=== PATIENT | male | born 1990 | race Caucasian/White ===

== ENCOUNTER 2018-06-18 21:09 | Emergency (ER) | payer OTHER ==
[2018-06-18 21:25] VITALS: BP 120/68; PULSE 86
--- NOTE | 2018-06-18 21:43 | ERPHSYRPT ---
- History of Present Illness Time Seen by Provider: 06/18/18 21:42 Source: patient Exam Limitations: no limitations Patient Subjective Stated Complaint: pt states he rolled his right ankle around noon today Triage Nursing Assessment: pt a&o x3; skin p, w, & d; assisted to room per self on crutches and family; family at bedside. Physician History: 28 y/o white male "rolled" his ankle today approx 10 am. at noon, his pain was worse and noticed swelling. pt took a nap and when he awoke pain and swelling worse. pt arrives using crutches. Method of Injury: twisted Occurred: this morning Quality: aching, throbbing Severity of Pain-Max: moderate Severity of Pain-Current: mild (to mod when ambulating) Lower Extremities Pain: ankle: right Modifying Factors: Improves With: movement Associated Symptoms: other (hurts to bear weight) Allergies/Adverse Reactions: No Known Drug Allergies Allergy (Verified 06/18/18 21:24) Hx Tetanus, Diphtheria Vaccination/Date Given: No Hx Influenza Vaccination/Date Given: No Hx Pneumococcal Vaccination/Date Given: No Immunizations Up to Date: No - Review of Systems Constitutional: No Symptoms Eyes: No Symptoms Ears, Nose, & Throat: No Symptoms Respiratory: No Symptoms Cardiac: No Symptoms Abdominal/Gastrointestinal: No Symptoms Genitourinary Symptoms: No Symptoms Musculoskeletal: Injury, Joint Swelling Skin: No Symptoms Neurological: Gait Changes (limping when ambulating. using crutches ), No Dizziness Psychological: No Symptoms Endocrine: No Symptoms, No Polyuria, No Polydipsia Hematologic/Lymphatic: No Symptoms Immunological/Allergic: No Symptoms All Other Systems: Reviewed and Negative - Past Medical History Pertinent Past Medical History: Yes Neurological History: No Pertinent History ENT History: No Pertinent History Cardiac History: No Pertinent History Respiratory History: No Pertinent History Endocrine Medical History: No Pertinent History Musculoskeletal History: Fractures GI Medical History: GI Bleed History: No Pertinent History Psycho-Social History: Bipolar, Depression, Other Male Reproductive Disorders: No Pertinent History Other Medical History: ADHD, OCD. Clavicle, ankle, foot, and hand fractures. - Past Surgical History Past Surgical History: Yes Neuro Surgical History: No Pertinent History Cardiac: No Pertinent History Respiratory: No Pertinent History Gastrointestinal: No Pertinent History Genitourinary: No Pertinent History Musculoskeletal: No Pertinent History Male Surgical History: No Pertinent History Other Surgical History: tonsillectomy - Social History Smoking Status: Current every day smoker How long have you smoked: 9 Exposure to second hand smoke: No Drug Use: none Patient Lives Alone: No - Nursing Vital Signs Nursing Vital Signs: Initial Vital Signs Temperature 97.6 F 06/18/18 21:19 Pulse Rate 86 06/18/18 21:19 Respiratory Rate 18 06/18/18 21:19 Blood Pressure 120/68 06/18/18 21:19 O2 Sat by Pulse Oximetry 96 06/18/18 21:19 Pain Scale Pain Intensity 8 - Physical Exam General Appearance: no apparent distress, alert, anxiety Eyes, Ears, Nose, Throat Exam: normal ENT inspection Neck Exam: normal inspection, non-tender, supple, full range of motion Cardiovascular/Respiratory Exam: chest non-tender Gastrointestinal/Abdominal Exam: non-tender Back Exam: normal inspection, normal range of motion, No CVA tenderness, No vertebral tenderness Hips Exam: bilateral: non-tender, normal inspection, normal range of motion, no evidence of injury Legs Exam: bilateral leg: non-tender, normal inspection, normal range of motion , no evidence of injury Knees Exam: bilateral knee: non-tender, normal inspection, normal range of motion, no evidence of injury Ankle Exam: right ankle: limited range of motion, soft tissue tenderness ( lateral malleolar area), swelling, left ankle: non-tender, normal inspection, normal range of motion, no evidence of injury Foot Exam: bilateral foot: non-tender, normal inspection, normal range of motion , no evidence of injury Neuro/Tendon Exam: normal sensation, normal motor functions, normal tendon functions Mental Status Exam: alert, oriented x 3, cooperative Skin Exam: normal color, warm, dry SpO2 Interpretation: normal SpO2: 96 Oxygen Delivery: Room Air - Course Nursing assessment & vital signs reviewed: Yes Ordered Tests: Active Orders 24 hr Category Date Time Status ANKLE (3 VIEWS) Stat Exams 06/18/18 20:06 Completed Lab/Rad Data: xray right ankle-no acute fx or dislocation. anterolateral soft tissue swelling - Progress Counseled pt/family regarding: diagnosis, need for follow-up, rad results - Departure Time of Disposition: 22:37 Departure Disposition: Home Clinical Impression: Right ankle sprain Condition: Stable Critical Care Time: No Referrals: DIPTI MILAN [Primary Care Provider] - Additional Instructions: ice pack 3 times daily for 2 days. wear leana wrap and use crutches for comfort. elevate right leg above level of heart if not ambulating. weight bearing as tolerated. tylenol and ibuprofen for pain.
--- NOTE | 2018-06-18 22:27 | XRAY ---
Indication: Pain following sprain injury. Comparison: None 3 views of the right ankle demonstrates anterior lateral soft tissue swelling. No other bony, articular, or soft tissue abnormalities.
[2018-06-18] MEDS ORDERED: NORCO 5/325 MG PO ONE (22:39)
[2018-06-18] MEDS ORDERED: NORCO 5/325 MG ONE (22:44)
[2018-06-18 22:48] VITALS: O2SAT 98
== END 2018-06-18 22:48 | disposition home or self-care (01) ==
LOC: ED 21:09
DX: S93.401A Sprain of unspecified ligament of right ankle, initial encounter (principal); X50.1XXA Overexertion from prolonged static or awkward postures, initial encounter
CPT/HCPCS: 73610; 99283; A9270-GY

== ENCOUNTER 2019-03-20 12:17 | Emergency (ER) | payer MEDICARE ==
[2019-03-20] MEDS ORDERED: Rocephin 1000 MG INJ IM ONE (13:30)
[2019-03-20 13:31] VITALS: BP 118/80; PULSE 87; O2SAT 100
[2019-03-20] MEDS ORDERED: solu-CORTEF 250MG IM STA (13:31)
[2019-03-20] MEDS ORDERED: solu-CORTEF 250MG ONE (13:35)
[2019-03-20] MEDS ORDERED: Rocephin 1000 MG INJ ONE (13:35)
--- NOTE | 2019-03-20 13:44 | ERPHSYRPT ---
- History of Present Illness Time Seen by Provider: 03/20/19 13:41 Source: patient Exam Limitations: no limitations Patient Subjective Stated Complaint: chest congestion x 1 week. seen at [facility] and was given a steroid shot. states he has a cough since then. Triage Nursing Assessment: chest congestion with cough x 1 week. non productive cough. staes had ear pain but that is better . lungs congested on auscultation. Physician History: chest congestion x 1 week. seen at [facility] and was given a steroid shot. states he has a cough since then. Timing/Duration: week(s) (one week) Severity: mild Associated Symptoms: cough Allergies/Adverse Reactions: No Known Drug Allergies Allergy (Verified 06/18/18 21:24) Hx Tetanus, Diphtheria Vaccination/Date Given: No Hx Influenza Vaccination/Date Given: No Hx Pneumococcal Vaccination/Date Given: No Immunizations Up to Date: Yes - Review of Systems Constitutional: No Fever, No Chills Eyes: No Symptoms Ears, Nose, & Throat: No Symptoms Respiratory: Cough, No Dyspnea, No Wheezing Cardiac: No Chest Pain, No Edema, No Syncope Abdominal/Gastrointestinal: No Abdominal Pain, No Nausea, No Vomiting, No Diarrhea Genitourinary Symptoms: No Dysuria Musculoskeletal: No Back Pain, No Neck Pain Skin: No Rash Neurological: No Dizziness, No Focal Weakness, No Sensory Changes Psychological: No Symptoms Endocrine: No Symptoms All Other Systems: Reviewed and Negative - Past Medical History Pertinent Past Medical History: Yes Neurological History: No Pertinent History ENT History: No Pertinent History Cardiac History: No Pertinent History Respiratory History: No Pertinent History Endocrine Medical History: No Pertinent History Musculoskeletal History: Fractures GI Medical History: GI Bleed History: No Pertinent History Psycho-Social History: Bipolar, Depression, Other Male Reproductive Disorders: No Pertinent History Other Medical History: ADHD, OCD. Clavicle, ankle, foot, and hand fractures. - Past Surgical History Past Surgical History: Yes Neuro Surgical History: No Pertinent History Cardiac: No Pertinent History Respiratory: No Pertinent History Gastrointestinal: No Pertinent History Genitourinary: No Pertinent History Musculoskeletal: No Pertinent History Male Surgical History: No Pertinent History Other Surgical History: tonsillectomy - Social History Smoking Status: Current every day smoker How long have you smoked: 9 Exposure to second hand smoke: No Drug Use: marijuana Patient Lives Alone: No - Nursing Vital Signs Nursing Vital Signs: Initial Vital Signs Temperature 98.6 F 03/20/19 13:07 Pulse Rate 87 03/20/19 13:07 Respiratory Rate 18 03/20/19 13:07 Blood Pressure 118/80 03/20/19 13:07 O2 Sat by Pulse Oximetry 100 03/20/19 13:07 Pain Scale Pain Intensity 0 - Physical Exam General Appearance: no apparent distress, alert Eye Exam: PERRL/EOMI, eyes nml inspection Ears, Nose, Throat Exam: normal ENT inspection, TMs normal, pharynx normal, moist mucous membranes Neck Exam: normal inspection, non-tender, supple, full range of motion Respiratory Exam: diminished breath sounds, rhonchi, wheezing, No respiratory distress Cardiovascular Exam: regular rate/rhythm, normal heart sounds, normal peripheral pulses Gastrointestinal/Abdomen Exam: soft, normal bowel sounds, No tenderness, No mass Back Exam: normal inspection, normal range of motion, No CVA tenderness, No vertebral tenderness Extremity Exam: normal inspection, normal range of motion, pelvis stable Neurologic Exam: alert, oriented x 3, cooperative, normal mood/affect, nml cerebellar function, nml station & gait, sensation nml, No motor deficits Skin Exam: normal color, warm, dry, No rash Lymphatic Exam: No adenopathy SpO2: 100 - Course Nursing assessment & vital signs reviewed: Yes Ordered Tests: Medication Summary Discontinued Medications Generic Name Dose Route Start Last Admin Trade Name Sulaiman PRN Reason Stop Dose Admin Ceftriaxone Sodium 1,000 mg 03/20/19 13:30 03/20/19 13:40 Rocephin 1000 Mg Inj IM 03/20/19 13:31 1,000 mg STAT ONE Administration Ceftriaxone Sodium Confirm 03/20/19 13:35 Rocephin 1000 Mg Inj Administered 03/20/19 13:36 Dose 1,000 mg .ROUTE .STK-MED ONE Hydrocortisone Sodium Succinate 250 mg 03/20/19 13:31 03/20/19 13:39 Solu-Cortef 250mg IM 03/20/19 13:32 250 mg Q6H STA Administration Hydrocortisone Sodium Succinate Confirm 03/20/19 13:35 Solu-Cortef 250mg Administered 03/20/19 13:36 Dose 250 mg .ROUTE .STK-MED ONE - Progress Counseled pt/family regarding: diagnosis, need for follow-up, smoking cessation - Departure Departure Disposition: Home Clinical Impression: Bronchitis, Smoking Condition: Stable Critical Care Time: No Referrals: TERRENCE PARKER [ACTIVE STAFF] - Instructions: Acute Bronchitis, Adult (DC), Risk Factors for COPD Prescriptions: Amoxicillin 500 mg PO TID #30 tablet Methylprednisolone Packet [Medrol Dosepack] 4 mg PO UD #30 packet
== END 2019-03-20 14:06 | disposition home or self-care (01) ==
LOC: ED 12:17
DX: J40 Bronchitis, not specified as acute or chronic (principal); F17.200 Nicotine dependence, unspecified, uncomplicated; R09.89 Other specified symptoms and signs involving the circulatory and respiratory systems
CPT/HCPCS: 96372; 99283; J0696; J1720

== ENCOUNTER 2022-08-11 15:29 | Emergency (ER) | payer MEDICARE ==
--- NOTE | 2022-08-11 15:34 | ERPHSYRPT ---
- History of Present Illness Time Seen by Provider: 08/11/22 15:34 Source: patient Exam Limitations: no limitations Physician History: This is a 32-year-old white male who presents with left foot pain after getting his left heel caught in lawn more chute. It made a superficial cut in the plantar surface of his left heel. Patient tetanus status is not up-to-date. Method of Injury: other (Lawn more) Occurred: just prior to arrival Severity of Pain-Max: mild Severity of Pain-Current: mild Lower Extremities Pain: foot: left (Plantar aspect of left heel) Modifying Factors: Improves With: nothing Associated Symptoms: none Allergies/Adverse Reactions: No Known Drug Allergies Allergy (Verified 08/11/22 15:39) Home Medications: Benztropine Mesylate 1 tab PO HS 08/11/22 [History] Omeprazole 1 tab PO DAILY 08/11/22 [History] risperiDONE [Risperidone] 1 tab PO BID 08/11/22 [History] Hx Tetanus, Diphtheria Vaccination/Date Given: No Hx Influenza Vaccination/Date Given: No Hx Pneumococcal Vaccination/Date Given: No Travel Risk - International Travel Have you traveled outside of the country in past 3 weeks: No - Coronavirus Screening Are you exhibiting any of the following symptoms?: No Close contact with a COVID-19 positive Pt in past 14-21 Days: No - Review of Systems Constitutional: No Symptoms Eyes: No Symptoms Ears, Nose, & Throat: No Symptoms Respiratory: No Symptoms Cardiac: No Symptoms Abdominal/Gastrointestinal: No Symptoms Genitourinary Symptoms: No Symptoms Musculoskeletal: No Symptoms Skin: Other (Superficial laceration left heel) Neurological: No Symptoms Psychological: No Symptoms Endocrine: No Symptoms Hematologic/Lymphatic: No Symptoms Immunological/Allergic: No Symptoms - Past Medical History Pertinent Past Medical History: Yes Neurological History: No Pertinent History ENT History: No Pertinent History Cardiac History: No Pertinent History Respiratory History: No Pertinent History Endocrine Medical History: No Pertinent History Musculoskeletal History: Fractures GI Medical History: GI Bleed History: No Pertinent History Psycho-Social History: Bipolar, Depression, Other Male Reproductive Disorders: No Pertinent History Other Medical History: ADHD, OCD. Clavicle, ankle, foot, and hand fractures. - Past Surgical History Past Surgical History: Yes Neuro Surgical History: No Pertinent History Cardiac: No Pertinent History Respiratory: No Pertinent History Gastrointestinal: No Pertinent History Genitourinary: No Pertinent History Musculoskeletal: No Pertinent History Male Surgical History: No Pertinent History Other Surgical History: tonsillectomy - Social History Smoking Status: Current every day smoker How long have you smoked: 9 Exposure to second hand smoke: No Drug Use: marijuana Patient Lives Alone: No - Nursing Vital Signs Nursing Vital Signs: Initial Vital Signs Temperature 98 F 08/11/22 15:42 Pulse Rate 84 08/11/22 15:42 Respiratory Rate 18 08/11/22 15:42 Blood Pressure 123/76 08/11/22 15:42 O2 Sat by Pulse Oximetry 94 L 08/11/22 15:42 Pain Scale Pain Intensity 1 - Physical Exam General Appearance: no apparent distress, alert Eyes, Ears, Nose, Throat Exam: normal ENT inspection, moist mucous membranes Neck Exam: normal inspection, non-tender, supple, full range of motion Cardiovascular/Respiratory Exam: chest non-tender, no respiratory distress Gastrointestinal/Abdominal Exam: non-tender Back Exam: normal inspection, normal range of motion, No CVA tenderness Hips Exam: bilateral: non-tender, normal inspection, normal range of motion, no evidence of injury Legs Exam: bilateral leg: non-tender, normal inspection, normal range of motion, no evidence of injury Knees Exam: bilateral knee: non-tender, normal inspection, normal range of motion, no evidence of injury Ankle Exam: bilateral ankle: non-tender, normal inspection, normal range of motion, no evidence of injury Foot Exam: right foot: non-tender, normal inspection, no evidence of injury, left foot: normal range of motion, soft tissue tenderness (Approximately 3.5 superficial laceration not through the full-thickness of the plantar surface of the left heel. No active bleeding. No foreign bodies.), other (No laceration repair necessary) Neuro/Tendon Exam: normal sensation, normal motor functions, normal tendon functions Mental Status Exam: alert, oriented x 3, cooperative Skin Exam: normal color, warm, dry, laceration (Left heel as stated above. No repair necessary) O2 Delivery: Room Air - Course Nursing assessment & vital signs reviewed: Yes Ordered Tests: Medication Summary Discontinued Medications Generic Name Dose Route Start Last Admin Trade Name Freq PRN Reason Stop Dose Admin Diphtheria/Tetanus/Acell Pertussis 0.5 ml 08/11/22 16:18 08/11/22 16:21 Tdap --Diph,Pertuss(Acell),Tet Vac/Pf 0.5 Ml Vial IM 10/24/22 16:19 0.5 ml .ONCE ONE Administration Diphtheria/Tetanus/Acell Pertussis Confirm 08/11/22 16:20 Tdap --Diph,Pertuss(Acell),Tet Vac/Pf 0.5 Ml Vial Administered 08/11/22 16:21 Dose 0.5 ml IM .STK-MED ONE - Progress Progress Note: 08/11/22 16:52 Left heel superficial laceration will heal by secondary intention. No surgical repair necessary. - Departure Departure Disposition: Home Clinical Impression: Laceration of left heel Condition: Stable Critical Care Time: No Referrals: NANETTE NGUYEN NP [Primary Care Provider] - Follow up/PCP as directed Additional Instructions: Keep the site clean daily with soap and water. Do not use lotions ointments or creams to the site. Cover with a nonstick bandage after cleaning and drying the site each day. Take your antibiotics as prescribed. Use Tylenol and ibuprofen for pain control. Prescriptions: Cephalexin Mh 500 mg [Keflex 500 mg] 500 mg PO TID #15 cap
[2022-08-11 15:51] VITALS: BP 123/76; PULSE 84; O2SAT 94
[2022-08-11] MEDS ORDERED: Adacel Vial IM ONE ×2 (16:18→16:20)
== END 2022-08-11 17:02 | disposition home or self-care (01) ==
LOC: ED 15:29
DX: S91.312A Laceration without foreign body, left foot, initial encounter (principal); W31.89XA Contact with other specified machinery, initial encounter; M79.672 Pain in left foot; Z72.0 Tobacco use; Z79.899 Other long term (current) drug therapy
CPT/HCPCS: 90471; 90715; 99282

== ENCOUNTER 2023-02-08 13:27 | Emergency (ER) | payer MEDICARE ==
[2023-02-08] MEDS ORDERED: Fluor-I-Strip/Ful-Flo OP ONE ×2 (14:02→14:21)
[2023-02-08] MEDS ORDERED: TETRACAINE 0.5% STERI-UNIT SOL OP ONE (14:02)
[2023-02-08] MEDS ORDERED: Eye-Stream Solution ONE (14:03)
[2023-02-08 14:04] VITALS: BP 131/85; O2SAT 98
--- NOTE | 2023-02-08 14:15 | ERPHSYRPT ---
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 Patient reports that he attempted to irrigate his eye with water yesterday but denies any foreign body noted after irrigation. Patient reports that his vision is left eye is blurry and that his eye itches. Patient having difficulty opening left eyelid without manually opening open. Clear drainage noted. Physician History: Patient is here for left eye irritation. Patient states that yesterday he was poked in the eye by a stick. States he was out mushroom hunting. Patient state s that he stood up quickly and struck his eye. Patient has had no obvious visual changes. 20/50 in both eyes. 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 not wear glasses. 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 have an trimmer buffing wheel that he follows with Allergies/Adverse Reactions: No Known Drug Allergies Allergy (Verified 02/08/23 13:49) Home Medications: Benztropine Mesylate 1 tab PO HS 08/11/22 [History] Omeprazole 2 tab PO DAILY 08/11/22 [History] risperiDONE [Risperidone] 1 tab PO BID 08/11/22 [History] Buspirone HCl 5 mg [Buspar 5 mg] 5 mg PO BID 02/08/23 [History] Sertraline HCl 50 mg [Zoloft 50 mg Tablet] 100 mg PO DAILY 02/08/23 [History] Hx Tetanus, Diphtheria Vaccination/Date Given: Yes Hx Influenza Vaccination/Date Given: No Hx Pneumococcal Vaccination/Date Given: No Immunizations Up to Date: Yes Travel Risk - International Travel Have you traveled outside of the country in past 3 weeks: No - Coronavirus Screening Are you exhibiting any of the following symptoms?: No Close contact with a COVID-19 positive Pt in past 14-21 Days: No - Vaccine Status Have you recieved a Covid-19 vaccination: Yes 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: [employer] - Vaccination Dates Date of 2cond Vaccination (if applicable): n/a - Review of Systems Constitutional: No Fever, No Chills Eyes: No Symptoms Ears, Nose, & Throat: No Symptoms Respiratory: No Cough, No Dyspnea Cardiac: No Chest Pain, No Edema, No Syncope Abdominal/Gastrointestinal: No Abdominal Pain, No Nausea, No Vomiting, No Diarrhea Genitourinary Symptoms: No Dysuria Musculoskeletal: No Back Pain, No Neck Pain Skin: No Rash Neurological: No Dizziness, No Focal Weakness, No Sensory Changes Psychological: No Symptoms Endocrine: No Symptoms All Other Systems: Reviewed and Negative - Past Medical History Pertinent Past Medical History: Yes Neurological History: No Pertinent History ENT History: No Pertinent History Cardiac History: No Pertinent History Respiratory History: No Pertinent History Endocrine Medical History: No Pertinent History Musculoskeletal History: Fractures GI Medical History: GI Bleed History: No Pertinent History Psycho-Social History: Bipolar, Depression, Other Male Reproductive Disorders: No Pertinent History Other Medical History: ADHD, OCD. Clavicle, ankle, foot, and hand fractures. - Past Surgical History Past Surgical History: Yes Neuro Surgical History: No Pertinent History Cardiac: No Pertinent History Respiratory: No Pertinent History Gastrointestinal: No Pertinent History Genitourinary: No Pertinent History Musculoskeletal: No Pertinent History Male Surgical History: No Pertinent History Other Surgical History: tonsillectomy - Social History Smoking Status: Current every day smoker How long have you smoked: 9 Exposure to second hand smoke: No Drug Use: marijuana Patient Lives Alone: No - Nursing Vital Signs Nursing Vital Signs: Initial Vital Signs Respiratory Rate 18 02/08/23 13:28 Blood Pressure 131/85 02/08/23 13:28 O2 Sat by Pulse Oximetry 98 02/08/23 13:28 Pain Scale Pain Intensity 1 - Physical Exam General Appearance: no apparent distress, alert Eye Exam: PERRL/EOMI, eyes nml inspection Ears, Nose, Throat Exam: normal ENT inspection, TMs normal, pharynx normal, moist mucous membranes Neck Exam: normal inspection, non-tender, supple, full range of motion Respiratory Exam: normal breath sounds, lungs clear, No respiratory distress Cardiovascular Exam: regular rate/rhythm, normal heart sounds, normal peripheral pulses Gastrointestinal/Abdomen Exam: soft, normal bowel sounds, No tenderness, No mass Back Exam: normal inspection, normal range of motion, No CVA tenderness, No vertebral tenderness Extremity Exam: normal inspection, normal range of motion, pelvis stable Neurologic Exam: alert, oriented x 3, cooperative, normal mood/affect, nml cerebellar function, nml station & gait, sensation nml, No motor deficits Skin Exam: normal color, warm, dry, No rash Lymphatic Exam: No adenopathy SpO2: 98 Comments: 02/08/23 15:47 Eye exam: The patient was examined with the Ultraviolet light, Shafer lamp. Extraocular movements are intact Pupils are equally round and reactive to light Visual acuity: 20/50 both eyes Eyelids/under eyelids: normal Conjunctivae and sclera: normal Corneas: Small corneal abrasion at 5 o'clock position on eye. normal without fluorescein uptake otherwise, and negative Jenni sign - Course Nursing assessment & vital signs reviewed: Yes Ordered Tests: Medication Summary Discontinued Medications Generic Name Dose Route Start Last Admin Trade Name Freq PRN Reason Stop Dose Admin Eye Irrigation Solution Confirm 02/08/23 14:03 Sodium/Potassium/Roberto/Magnesium 30 Ml Eye Wash Administered 02/08/23 14:04 Dose 30 ml .ROUTE .STK-MED ONE Eye Irrigation Solution 15 ml 02/08/23 14:21 02/08/23 14:23 Sodium/Potassium/Roberto/Magnesium 30 Ml Eye Wash OP 02/08/23 14:22 15 ml STAT ONE Administration Fluorescein Sodium Confirm 02/08/23 14:02 Fluorescein Sodium 1 Mg/Strip Strip Administered 02/08/23 14:03 Dose 1 mg OP .STK-MED ONE Fluorescein Sodium 1 mg 02/08/23 14:21 02/08/23 14:22 Fluorescein Sodium 1 Mg/Strip Strip OP 02/08/23 14:22 1 mg STAT ONE Administration Tetracaine HCl Confirm 02/08/23 14:02 Tetracaine Hcl/Pf 4 Ml Bottle Administered 02/08/23 14:03 Dose 4 ml OP .STK-MED ONE Tetracaine HCl 4 ml 02/08/23 14:21 02/08/23 14:22 Tetracaine Hcl/Pf 4 Ml Bottle OP 02/08/23 14:22 4 ml STAT STA Administration - Progress Progress: improved Progress Note: 02/08/23 15:49 Left eye shows small corneal abrasion. This would make sense with patient's symptoms and history. Plan for erythromycin ointment going home. Patient will need close follow-up with optometry this week. He was given trimmer buffing wheel follow- up with. He may also follow-up with his trimmer buffing wheel. - Departure Departure Disposition: Home Clinical Impression: Left corneal abrasion Condition: Stable Critical Care Time: No Referrals: NANETTE NGUYEN NP [Primary Care Provider] - Follow up/PCP as directed Instructions: Corneal Abrasion Additional Instructions: [facility] Address: [address] [place] [address] See trimmer buffing wheel or lead generation marketing manager at [facility] this week for reexam.
[2023-02-08] MEDS ORDERED: Eye-Stream Solution OP ONE (14:21)
[2023-02-08] MEDS ORDERED: TETRACAINE 0.5% STERI-UNIT SOL OP STA (14:21)
== END 2023-02-08 14:24 | disposition home or self-care (01) ==
LOC: ED 13:27
DX: S05.02XA Injury of conjunctiva and corneal abrasion without foreign body, left eye, initial encounter (principal); W22.8XXA Striking against or struck by other objects, initial encounter; Y92.821 Forest as the place of occurrence of the external cause; H57.12 Ocular pain, left eye; Z79.899 Other long term (current) drug therapy; Z72.0 Tobacco use
CPT/HCPCS: 99281; A9270-GY

== ENCOUNTER 2024-11-04 22:44 | Emergency (ER) | payer MEDICARE ==
[2024-11-04 23:32] LABS: Absolute Neutrophil Ct (ANC) 6.04 x10^3/uL (1.78-5.38); BASOPHIL % 0.3 % (0.2-1.2); Basophil (Absolute #) 0.02 x10^3/uL (0.01-0.08); Eosinophil % 0.1 % (0.8-7.0); Eosinophil (Absolute #) 0.01 x10^3/uL (0.04-0.54); Hematocrit 40.9 % (40.1-51.0); IMMATURE GRAN # 0.03 x10^3u/L (0.001-0.031); IMMATURE GRAN % 0.4 % (0.001-0.429); Lymphocyte (Absolute #) 0.78 x10^3/uL (1.32-3.57); Lymphocytes % 10.8 % (21.8-53.1); Mean Cell Volume 86.3 fL (79.0-92.2); Mean Corpuscular Hemoglobin 29.5 pg (25.7-32.2); Mean Corpuscular Hgb Concent. 34.2 g/dL (32.3-36.5); Mean Platelet Volume 10.4 fL (9.4-12.4); Monocyte (Absolute #) 0.37 x10^3/uL (0.30-0.82); Monocytes % 5.1 % (5.3-12.2); Neutrophil % 83.3 % (34.0-67.9); Platelet Count 236 x10^3/uL (163-337); Red Blood Count 4.74 x10^6/uL (4.63-6.08); Red Cell Distribution Width 13.6 % (11.6-14.4); White Blood Count 7.3 x10^3/uL (4.23-9.07)
[2024-11-04] MEDS ORDERED: DUONEB 0.5-3 MG/3 ml Neb IH ONE (23:43)
[2024-11-04 23:45] LABS: ALBUMIN 4.5 g/dL (3.5-5.0); ANION GAP 16.9 MEQ/L (5-15); BILIRUBIN,TOTAL 1.2 mg/dL (0.2-1.3); Calcium 9.2 mg/dL (8.4-10.2); Creatinine 1 1.33 mg/dL (0.66-1.25); EST GLOMERULAR FILTRATION RATE 72.4 ML/MIN; Potassium 4.2 mmol/L (3.5-5.1); Total Protein 7.2 g/dL (6.3-8.2)
[2024-11-04] MEDS ORDERED: TORAdol 30 mg Injection ONE (23:47)
[2024-11-04] MEDS ORDERED: BABY ASPIRIN 81 MG CHEW ONE (23:47)
[2024-11-04] MEDS: TORAdol 30 mg Injection IV ONE (23:49)
[2024-11-04] MEDS: BABY ASPIRIN 81 MG CHEW PO ONE (23:49)
[2024-11-04] MEDS: DUONEB 0.5-3 MG/3 ml Neb IH ONE (23:52)
[2024-11-05 00:08] LABS: INFLUENZA A NEGATIVE (NEGATIVE); INFLUENZA B NEGATIVE (NEGATIVE); RESPIRATORY SYNCTIAL VIRUS NEGATIVE (NEGATIVE); SARS-CoV-2 Xpert Express NEGATIVE (NEGATIVE)
[2024-11-05] MEDS: Sodium Chloride 0.9% 1000 ML 1,000 ML IV STA (00:09)
[2024-11-05] MEDS ORDERED: Sodium Chloride 0.9% 1000 ML 1,000 ML ONE (00:20)
[2024-11-05 01:03] VITALS: TEMP 97.3
[2024-11-05 01:05] VITALS: O2SAT 95
--- NOTE | 2024-11-05 01:18 | ERPHSYRPT ---
- History of Present Illness Time Seen by Provider: 11/04/24 23:15 Historian: patient Exam Limitations: no limitations Patient Subjective Stated Complaint: pt states he has been having chest pain today. states he was chopping firewood today and has been having pain since. Triage Nursing Assessment: pt alert and oriented. answers questions approp. pt ambulates to room with steady gait noted. respirations nonlabored. skin warm and dry. heart rate 98, sinus rhythm on monitor. Physician History: 34-year-old male with history of anxiety/depression, GERD presented in the ER with bilateral chest pain across since afternoon. Patient reports he was cutting wood all day long and was hurting in the low back which he has chronic issue. Patient reports moderate intensity dull aching to sharp pain, hurts with movements of shoulder and no difficulty breathing. Denies any palpitations. 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 report decreased oral intake for the last few days. No history of coronary artery disease or chest pain. Also reports having aches and pains all over and subjective feeling of fever and chills. Nitro Today/Relief: no nitro taken today Aspirin Treatment Today: no aspirin today Allergies/Adverse Reactions: No Known Drug Allergies Allergy (Verified 02/08/23 13:49) Home Medications: Benztropine Mesylate 1 tab PO HS 08/11/22 [History] Omeprazole 2 tab PO DAILY 08/11/22 [History] risperiDONE [Risperidone] 1 tab PO BID 08/11/22 [History] Buspirone HCl 5 mg [Buspar 5 mg] 5 mg PO BID 02/08/23 [History] Sertraline HCl 50 mg [Zoloft 50 mg Tablet] 100 mg PO DAILY 02/08/23 [History] Hx Tetanus, Diphtheria Vaccination/Date Given: Yes Hx Influenza Vaccination/Date Given: No Hx Pneumococcal Vaccination/Date Given: No Immunizations Up to Date: Yes Travel Risk - International Travel Have you traveled outside of the country in past 3 weeks: No - Emerging Infectious Disease Are you exhibiting symptoms associated with any current EIDs: No - Review of Systems Constitutional: Fever, Fatigue, Weakness Eyes: No Symptoms Ears, Nose, & Throat: Nose Congestion Respiratory: Cough Cardiac: Chest Pain Abdominal/Gastrointestinal: No Symptoms Genitourinary Symptoms: No Symptoms Musculoskeletal: Myalgias Skin: No Symptoms Neurological: Headache Endocrine: No Symptoms Hematologic/Lymphatic: No Symptoms Immunological/Allergic: No Symptoms - Past Medical History Pertinent Past Medical History: Yes Neurological History: No Pertinent History ENT History: No Pertinent History Cardiac History: No Pertinent History Respiratory History: No Pertinent History Endocrine Medical History: No Pertinent History Musculoskeletal History: Fractures GI Medical History: GI Bleed History: No Pertinent History Psycho-Social History: Bipolar, Depression, Other Male Reproductive Disorders: No Pertinent History Other Medical History: ADHD, OCD. Clavicle, ankle, foot, and hand fractures. - Past Surgical History Past Surgical History: Yes Neuro Surgical History: No Pertinent History Cardiac: No Pertinent History Respiratory: No Pertinent History Gastrointestinal: No Pertinent History Genitourinary: No Pertinent History Musculoskeletal: No Pertinent History Male Surgical History: No Pertinent History Other Surgical History: tonsillectomy - Social History Smoking Status: Current every day smoker How long have you smoked: 9 Exposure to second hand smoke: No Drug Use: marijuana Patient Lives Alone: No - Social Determinants of Health Will the patient participate in the screening: Declined to provide - Nursing Vital Signs Nursing Vital Signs: Initial Vital Signs Temperature 97.3 F 11/04/24 22:45 Pulse Rate 92 H 11/04/24 22:45 Respiratory Rate 20 11/04/24 22:45 Blood Pressure 126/76 11/04/24 22:45 O2 Sat by Pulse Oximetry 99 11/04/24 22:45 Pain Scale Pain Intensity 0 - Physical Exam General Appearance: no apparent distress, alert Eye Exam: PERRL/EOMI Ears, Nose, Throat Exam: pharyngeal erythema Neck Exam: normal inspection Respiratory Exam: normal breath sounds, chest tenderness (Mild diffuse), lungs clear Cardiovascular Exam: regular rate/rhythm, normal heart sounds Gastrointestinal/Abdomen Exam: soft, normal bowel sounds, No tenderness Back Exam: normal inspection, normal range of motion Neurologic Exam: alert, oriented x 3, cooperative Skin Exam: normal color SpO2 Interpretation: normal SpO2: 95 O2 Delivery: Room Air - Course EKG Interpreted by Me: RATE ([id number]), Sinus Rhythm, NORMAL AXIS, NORMAL INTERVALS, NORMAL QRS Ordered Tests: Active Orders 24 hr Category Date Time Status Customer Care Voice Consultant STAT Care 11/04/24 23:17 Active EKG-ER Only STAT Care 11/04/24 23:17 Active IV Insertion STAT Care 11/04/24 23:17 Active CHEST 1 VIEW (PORTABLE) Stat Exams 11/04/24 23:17 Taken CBC W DIFF Stat Lab 11/04/24 23:20 Completed CK (IN-HOUSE) [CK-Creatinine Phosphokinase] Stat Lab 11/05/24 00:36 Completed CMP Stat Lab 11/04/24 23:20 Completed TROPONIN Q4H Lab 11/04/24 23:20 Completed TROPONIN Q4H Lab 11/05/24 01:15 Completed TROPONIN Q4H Lab 11/05/24 07:30 Ordered Respiratory Therapy Assessment DAILY RT 11/04/24 23:55 Completed Medication Summary Discontinued Medications Generic Name Dose Route Start Last Admin Trade Name Sulaiman PRN Reason Stop Dose Admin Albuterol/Ipratropium 3 ml 11/04/24 23:17 11/04/24 23:52 Ipratropium/Albuterol Sulfate 3 Ml Ampul.Neb IH 11/04/24 23:18 3 ml STAT ONE Administration Albuterol/Ipratropium Confirm 11/04/24 23:43 Ipratropium/Albuterol Sulfate 3 Ml Ampul.Neb Administered 11/04/24 23:44 Dose 3 ml IH .STK-MED ONE Aspirin 324 mg 11/04/24 23:18 11/04/24 23:49 Aspirin 81 Mg Tab.Chew PO 11/04/24 23:19 324 mg STAT ONE Administration Aspirin Confirm 11/04/24 23:47 Aspirin 81 Mg Tab.Chew Administered 11/04/24 23:48 Dose 324 mg .ROUTE .STK-MED ONE Sodium Chloride 1,000 mls @ 999 mls/hr 11/05/24 00:07 11/05/24 00:09 Sodium Chloride 0.9% 1000 Ml IV 11/05/24 01:07 999 mls/hr .Q1H1M STA Administration Sodium Chloride Confirm 11/05/24 00:20 Sodium Chloride 0.9% 1000 Ml Administered 11/05/24 00:21 Dose 1,000 mls @ ud .ROUTE .STK-MED ONE Ketorolac Tromethamine 30 mg 11/04/24 23:18 11/04/24 23:49 Ketorolac Tromethamine 30 Mg/Ml Inj IV 11/04/24 23:19 30 mg STAT ONE Administration Ketorolac Tromethamine Confirm 11/04/24 23:47 Ketorolac Tromethamine 30 Mg/Ml Inj Administered 11/04/24 23:48 Dose 30 mg .ROUTE .STK-MED ONE Lab/Rad Data: Laboratory Result Diagrams 11/04/24 23:20 11/04/24 23:20 Laboratory Results 11/05/24 11/05/24 11/04/24 Range/Units 01:15 00:36 23:25 WBC (4.23-9.07) x10^3/uL RBC (4.63-6.08) x10^6/uL Hgb (13.7-17.5) g/dL Hct (40.1-51.0) % MCV (79.0-92.2) fL MCH (25.7-32.2) pg MCHC (32.3-36.5) g/dL RDW (11.6-14.4) % Plt Count (163-337) x10^3/uL MPV (9.4-12.4) fL Gran % (34.0-67.9) % Immature Gran % (Auto) (0.001-0.429) % Nucleat RBC Rel Count (0.00-0.2) % Eos # (Auto) (0.04-0.54) x10^3/uL Immature Gran # (Auto) (0.001-0.031) x10^3u/L Absolute Lymphs (auto) (1.32-3.57) x10^3/uL Absolute Monos (auto) (0.30-0.82) x10^3/uL Absolute Nucleated RBC (0.00-0.012) x10^3u/L Lymphocytes % (21.8-53.1) % Monocytes % (5.3-12.2) % Eosinophils % (0.8-7.0) % Basophils % (0.2-1.2) % Absolute Granulocytes (1.78-5.38) x10^3/uL Basophils # (0.01-0.08) x10^3/uL Sodium (135-145) mmol/L Potassium (3.5-5.1) mmol/L Chloride (98-107) mmol/L Carbon Dioxide (22-30) mmol/L Anion Gap (5-15) MEQ/L BUN (9-20) mg/dL Creatinine (0.66-1.25) mg/dL Estimated GFR ML/MIN Glucose (74-106) mg/dL Calcium (8.4-10.2) mg/dL Total Bilirubin (0.2-1.3) mg/dL AST (17-59) U/L ALT (0-50) U/L Alkaline Phosphatase (38-126) U/L Creatine Kinase 245 H (55-170) U/L Troponin I < 0.012 (0.000-0.033) ng/mL Serum Total Protein (6.3-8.2) g/dL Albumin (3.5-5.0) g/dL Influenza Type A Ag NEGATIVE (NEGATIVE) Influenza Type B Ag NEGATIVE (NEGATIVE) RSV (PCR) NEGATIVE (NEGATIVE) SARS-CoV-2 (PCR) NEGATIVE (NEGATIVE) 11/04/24 11/04/24 11/04/24 Range/Units 23:20 23:20 23:20 WBC 7.3 (4.23-9.07) x10^3/uL RBC 4.74 (4.63-6.08) x10^6/uL Hgb 14.0 (13.7-17.5) g/dL Hct 40.9 (40.1-51.0) % MCV 86.3 (79.0-92.2) fL MCH 29.5 (25.7-32.2) pg MCHC 34.2 (32.3-36.5) g/dL RDW 13.6 (11.6-14.4) % Plt Count 236 (163-337) x10^3/uL MPV 10.4 (9.4-12.4) fL Gran % 83.3 H (34.0-67.9) % Immature Gran % (Auto) 0.4 (0.001-0.429) % Nucleat RBC Rel Count 0.0 (0.00-0.2) % Eos # (Auto) 0.01 L (0.04-0.54) x10^3/uL Immature Gran # (Auto) 0.03 (0.001-0.031) x10^3u/L Absolute Lymphs (auto) 0.78 L (1.32-3.57) x10^3/uL Absolute Monos (auto) 0.37 (0.30-0.82) x10^3/uL Absolute Nucleated RBC 0.00 (0.00-0.012) x10^3u/L Lymphocytes % 10.8 L (21.8-53.1) % Monocytes % 5.1 L (5.3-12.2) % Eosinophils % 0.1 L (0.8-7.0) % Basophils % 0.3 (0.2-1.2) % Absolute Granulocytes 6.04 H (1.78-5.38) x10^3/uL Basophils # 0.02 (0.01-0.08) x10^3/uL Sodium 134 L (135-145) mmol/L Potassium 4.2 (3.5-5.1) mmol/L Chloride 104 (98-107) mmol/L Carbon Dioxide 17 L (22-30) mmol/L Anion Gap 16.9 H (5-15) MEQ/L BUN 16 (9-20) mg/dL Creatinine 1.33 H (0.66-1.25) mg/dL Estimated GFR 72.4 ML/MIN Glucose 98 (74-106) mg/dL Calcium 9.2 (8.4-10.2) mg/dL Total Bilirubin 1.20 (0.2-1.3) mg/dL AST 27 (17-59) U/L ALT 27 (0-50) U/L Alkaline Phosphatase 105 (38-126) U/L Creatine Kinase (55-170) U/L Troponin I < 0.012 (0.000-0.033) ng/mL Serum Total Protein 7.2 (6.3-8.2) g/dL Albumin 4.5 (3.5-5.0) g/dL Influenza Type A Ag (NEGATIVE) Influenza Type B Ag (NEGATIVE) RSV (PCR) (NEGATIVE) SARS-CoV-2 (PCR) (NEGATIVE) - Progress Progress: improved, re-examined Air Movement: good Progress Note: 11/05/24 02:07 34 years old is evaluated in the ER for chest pain across. The EKG is normal sinus rhythm with no ST elevation. Patient chest pain started while he was cutting wood's and is reproducible with palpation and movements. Given fluids and symptomatic treatment, on reevaluation his chest pain is completely resolved. Normal white count, chemistries consistent with some element of dehydration and BUSHRA with a creatinine of 1.33 and a baseline around 0.9. Has negative troponins x 2. Patient is PERC negative. I believe patient has muscular chest pain, recommended increase hydration, Tylenol and outpatient follow-up. Do not think needs any other workup and is stable for discharge. Discussed signs symptoms of worsening needing return to ER which he seems understanding. Blood Culture(s) Obtained: No Antibiotics given: No Counseled pt/family regarding: lab results, diagnosis, need for follow-up, rad results, smoking cessation Medical Desision Making - Independent Historian Additional History obtained from: Spouse - Diagnostic Testing Diagnostic test were ordered, analyzed, and reviewed by me: Yes Radiological Interpretation: Interpreted by me, Reviewed by me - Risk of complications The pt has a mod risk of morbidity or mortality based on: Need for prescription drug management - Departure Departure Disposition: Home Clinical Impression: Atypical chest pain, Acute kidney injury Condition: Stable Critical Care Time: No Referrals: KANIKA ENGEL, VEGETABLE LOADER [Primary Care Provider] - Follow up with PCP 1 day Instructions: Acute kidney injury, Chest Pain (DC) Additional Instructions: Drink plenty of fluids. Take Tylenol as needed. Follow-up with primary care for reevaluation. Return to ER for worsening of symptoms.
[2024-11-05 02:16] VITALS: BP 153/104; PULSE 91; RESP 18
--- NOTE | 2024-11-05 08:24 | XRAY ---
Indication: Chest pain. Comparison: November 13, 2023 Portable chest slightly less inflated with new minimal left base subsegmental atelectasis/scarring. No focal infiltrate, consolidation, or large effusion. Heart not enlarged. Enlarging moderate sized hiatal hernia with partial intrathoracic stomach. Bony thorax intact. Impression: Nonacute chest with chronic features.
== END 2024-11-05 02:32 | disposition home or self-care (01) ==
LOC: ED 22:44
DX: R07.89 Other chest pain (principal); N17.9 Acute kidney failure, unspecified; M79.10 Myalgia, unspecified site; Z79.899 Other long term (current) drug therapy; Z72.0 Tobacco use
CPT/HCPCS: 0241U; 36415; 71045; 80053; 82550; 84484; 85025; 93005; 93041; 94640; 96374; 99285; 99284; J1885; A9270-GY

== ENCOUNTER 2025-05-12 13:23 | Emergency (ER) | payer MEDICARE ==
--- NOTE | 2025-05-12 13:26 | ERPHSYRPT ---
- History of Present Illness Time Seen by Provider: 05/12/25 13:26 Source: patient, family Exam Limitations: no limitations Physician History: This is a 35-year-old white male patient brought to the emergency department by private vehicle accompanied by his significant other and is a patient of nurse practitioner Patsy with the complaint of significant back pain which is described as throbbing and then sharp shooting pain into the right hip that, since yesterday, feels that intermittently it might give out. He did not fall or suffer any acute trauma. Patient has a history of chronic low back pain and herniated disks in the lumbar spine. He has no urinary incontinence. He has no bowel incontinence. He has no constipation he has no numbness in his feet. Patient did take a Flexeril last evening which helped a little bit. He has not taken any medications today to help his pain. Patient has a history of gastroesophageal reflux disease, anxiety, depression, OCD, bipolar disorder, and ADHD. Timing/Duration: yesterday Method of Injury: lifting, twisted, turning, other (Shoveling and digging) Quality: sharp, throbbing Back Pain Location: lumbar spine Severity of Pain-Max: moderate Severity of Pain-Current: moderate Modifying Factors: Improves With: movement Associated Symptoms: lower back pain, muscle spasms, No urinary incontinence, No loss of bowel control, No constipation, No problems urinating, No numbness in legs/feet Previous symptoms: same symptoms as today, no recent treatment Allergies/Adverse Reactions: No Known Drug Allergies Allergy (Verified 02/08/23 13:49) Home Medications: Benztropine Mesylate 1 tab PO HS 08/11/22 [History] Omeprazole 2 tab PO DAILY 08/11/22 [History] risperiDONE [Risperidone] 1 tab PO BID 08/11/22 [History] Buspirone HCl 5 mg [Buspar 5 mg] 5 mg PO BID 02/08/23 [History] Sertraline HCl 50 mg [Zoloft 50 mg Tablet] 100 mg PO DAILY 02/08/23 [History] Famotidine 40 mg PO HS 05/12/25 [History] Hx Tetanus, Diphtheria Vaccination/Date Given: Yes Hx Influenza Vaccination/Date Given: No Hx Pneumococcal Vaccination/Date Given: No Travel Risk - International Travel Have you traveled outside of the country in past 3 weeks: No - Emerging Infectious Disease Are you exhibiting symptoms associated with any current EIDs: No - Review of Systems Constitutional: No Symptoms Eyes: No Symptoms Ears, Nose, & Throat: No Symptoms Respiratory: No Symptoms Cardiac: No Symptoms Abdominal/Gastrointestinal: No Symptoms Genitourinary Symptoms: No Symptoms Musculoskeletal: Back Pain Skin: No Symptoms Neurological: No Symptoms Psychological: No Symptoms Endocrine: No Symptoms Hematologic/Lymphatic: No Symptoms Immunological/Allergic: No Symptoms All Other Systems: Reviewed and Negative - Past Medical History Pertinent Past Medical History: Yes Neurological History: No Pertinent History ENT History: No Pertinent History Cardiac History: No Pertinent History Respiratory History: No Pertinent History Endocrine Medical History: No Pertinent History Musculoskeletal History: Fractures GI Medical History: GI Bleed History: No Pertinent History Psycho-Social History: Bipolar, Depression, Other Male Reproductive Disorders: No Pertinent History Other Medical History: ADHD, OCD. Clavicle, ankle, foot, and hand fractures. - Past Surgical History Past Surgical History: Yes Neuro Surgical History: No Pertinent History Cardiac: No Pertinent History Respiratory: No Pertinent History Gastrointestinal: No Pertinent History Genitourinary: No Pertinent History Musculoskeletal: No Pertinent History Male Surgical History: No Pertinent History Other Surgical History: tonsillectomy - Social History Smoking Status: Current every day smoker How long have you smoked: 9 Exposure to second hand smoke: No Drug Use: marijuana Patient Lives Alone: No - Social Determinants of Health Will the patient participate in the screening: Declined to provide - Nursing Vital Signs Nursing Vital Signs: Initial Vital Signs Temperature 97.6 F 05/12/25 13:27 Respiratory Rate 16 05/12/25 13:27 Blood Pressure 123/82 05/12/25 13:27 O2 Sat by Pulse Oximetry 100 05/12/25 13:27 Pain Scale Pain Intensity [Back] 10 Pain Intensity 10 - Physical Exam General Appearance: no apparent distress, alert, anxiety Eye Exam: PERRL/EOMI, eyes nml inspection Ears, Nose, Throat Exam: normal ENT inspection, moist mucous membranes Neck Exam: normal inspection, non-tender, supple, full range of motion Respiratory Exam: airway intact, No chest tenderness, No respiratory distress Gastrointestinal Exam: No tenderness Rectal Exam: not done Back Exam: normal inspection, normal range of motion, muscle spasm (Lumbar level paraspinous muscle tenderness and spasms), No vertebral tenderness Extremity Exam: normal inspection, normal range of motion, pelvis stable Neurologic Exam: alert, oriented x 3, cooperative, cable wirer II-XII nml as tested, sensation nml Skin Exam: normal color, warm, dry Lymphatic Exam: No adenopathy SpO2 Interpretation: normal O2 Delivery: Room Air - Course Nursing assessment & vital signs reviewed: Yes Ordered Tests: Medication Summary Discontinued Medications Generic Name Dose Route Start Last Admin Trade Name Sulaiman PRN Reason Stop Dose Admin Methylprednisolone Sodium 0 mg 05/12/25 13:56 Succinate 125 mg/ Sterile IM 05/12/25 13:57 Water 2 ml STAT ONE Hydromorphone HCl 1 mg 05/12/25 13:56 Hydromorphone 1 Mg/1ml Inj IM 05/12/25 13:57 STAT ONE Ondansetron HCl 4 mg 05/12/25 13:55 Zofran 4 Mg/Udtablet Orally Disintegrating PO 05/12/25 13:56 STAT ONE Orphenadrine Citrate 60 mg 05/12/25 13:56 Orphenadrine Citrate 60 Mg/2 Ml Vial IM 05/12/25 13:57 STAT ONE - Progress Progress Note: 05/12/25 14:02 My medical decision making and the assignment of low complexity of this patient's medical issue today is based on review of the patient's past medical history, review of patient medication list, reviewed patient drug allergy list, history present illness and physical findings on examination. The workup in this patient is based on the patient not wanting radiographic studies unless absolutely necessary. Patient did not fall or suffer any acute trauma. He does have chronic back pain and he has an explanation of acute exertion yesterday. Differential diagnosis includes but is not limited to sciatica, acute exacerbation of chronic low back pain, right hip pain Counseled pt/family regarding: diagnosis, need for follow-up Medical Desision Making - Independent Historian Additional History obtained from: Spouse - Diagnostic Testing Diagnostic test were ordered, analyzed, and reviewed by me: No - Risk of complications The pt has a mod risk of morbidity or mortality based on: Need for prescription drug management - Departure Departure Disposition: Home Clinical Impression: Acute exacerbation of chronic low back pain Condition: Stable Critical Care Time: No Referrals: KANIKA ENGEL BLOW TORCH OPERATOR [Primary Care Provider, UNKNOWN] - Follow up/PCP as directed Additional Instructions: Stop your Flexeril. Take your new medication as prescribed. Call your prescribing provider today, 05/12/2025 to make arrangements to be seen next week for further outpatient management of your chronic back pain issues. You may also add plain Tylenol 650 mg orally every 6 hours while awake. Prescriptions: Prednisone 10 mg [Deltasone 10 mg] 10 mg PO TID #12 tablet Orphenadrine Citrate 100 mg [Norflex 100 MG Tablet] 100 mg PO BID #10 tab
[2025-05-12 13:39] VITALS: RESP 16; TEMP 97.6
[2025-05-12] MEDS ORDERED: Sterile H2O 10 ml IJ ONE (14:02)
[2025-05-12] MEDS ORDERED: ZOFRAN ODT 4 MG ONE (14:02)
[2025-05-12] MEDS ORDERED: Norflex 60 MG/2 ML ONE (14:03)
[2025-05-12] MEDS ORDERED: Hydromorphone 1 mg/ml Injection ONE (14:03)
[2025-05-12] MEDS: solu-MEDROL 125 MG, Sterile H2O 10 ml 2 ML IM ONE (14:15)
[2025-05-12] MEDS: Norflex 60 MG/2 ML IM ONE (14:19)
[2025-05-12] MEDS: Hydromorphone 1 mg/ml Injection IM ONE (14:20)
[2025-05-12] MEDS: ZOFRAN ODT 4 MG PO ONE (14:20)
[2025-05-12 14:38] VITALS: BP 110/73; PULSE 61; O2SAT 94
== END 2025-05-12 14:50 | disposition home or self-care (01) ==
LOC: ED 13:23
DX: G89.29 Other chronic pain (principal); M54.50 Low back pain, unspecified; M25.551 Pain in right hip; Z79.52 Long term (current) use of systemic steroids; Z79.899 Other long term (current) drug therapy; Z72.0 Tobacco use